=== PATIENT | female | born 1975 | race African-American/Black ===

== ENCOUNTER 2017-10-06 12:43 | Day surgery (SDC) | payer OTHER ==
[2017-10-06] MEDS ORDERED: LIDOCAINE 1% (MPF) 30 ML INJ (15:22)
[2017-10-06] MEDS ORDERED: BUPIVACAINE 0.5% (SDV) 30 ML INJ (15:22)
[2017-10-06] MEDS ORDERED: MIDAZOLAM 1 MG/ML 2 ML INJ ×2 (15:36)
[2017-10-06] MEDS ORDERED: ROPIVACAINE 0.5 % 30 ML VIAL (15:47)
[2017-10-06] MEDS ORDERED: METHYLPREDNISOLONE ACET 80 MG/ML 1 ML (15:47)
[2017-10-06] MEDS ORDERED: FENTAnyl 50 MCG/ML VIAL (15:47)
[2017-10-06] MEDS: ROPIVACAINE 0.5 % 30 ML VIAL INJ (15:57)
[2017-10-06] MEDS: METHYLPREDNISOLONE ACET 80 MG/ML 1 ML INJ (16:01)
[2017-10-06] MEDS ORDERED: PROPOFOL 20 ML (16:09)
== END 2017-10-06 17:33 | disposition home or self-care (01) ==
LOC: SDS 12:43
DX: M46.1 Sacroiliitis, not elsewhere classified (principal)
CPT/HCPCS: 20552; 72170

== ENCOUNTER 2018-11-30 09:43 | Inpatient (IN) | payer OTHER ==
[~2018-11-30 09:43] MED LIST: BUPIVACAINE 0.5% (SDV) 30 ML, morphine SULFATE (PF) 8 MG, EPINEPHrine 0.3 MG, KETOROLAC... IRR; CEFAZOLIN 2 GM/50 ML (PMX) 50 ML IVPB; CEFAZOLIN 3 GM in DEXTROSE 5% 100 ML IVPB; VANCOMYCIN 1 GM (PMX) 250 ML IVPB
[2018-11-30] MEDS: ACETAMINOPHEN 1000MG/100ML IV 100 ML IVPB (12:49)
[2018-11-30] MEDS: oxyCODONE (CR) 10 MG TAB [oxyCONTIN] PO (12:58)
[2018-11-30] MEDS: GABAPENTIN 300 MG CAP PO ×2 (12:58→20:52)
[2018-11-30] MEDS ORDERED: CEFAZOLIN 1 GM INJ ×2 (13:03→15:16)
[2018-11-30] MEDS ORDERED: LIDOCAINE 2% (SDV) 5 ML INJ (13:03)
[2018-11-30] MEDS ORDERED: PROPOFOL 20 ML (13:03)
[2018-11-30] MEDS ORDERED: ONDANSETRON 4 MG INJ (13:04)
[2018-11-30] MEDS ORDERED: METOCLOPRAMIDE 10 MG INJ (13:04)
[2018-11-30] MEDS: TRANEXAMIC ACID 1GM/100ML(PMX) 100 ML IVPB ×5 (13:05→16:39)
[2018-11-30] MEDS: ROPIVACAINE 0.5 % 30 ML VIAL (13:58)
[2018-11-30] MEDS: POLYMYXIN/BACITRACIN 1L IRRIG (14:00)
[2018-11-30] MEDS: [UNRECOGNIZED DRUG - OTHER] IRR (14:02)
[2018-11-30] MEDS: BUPIVACAINE 0.5% IRR (14:02)
[2018-11-30] MEDS: MORPHINE SULFATE IRR (14:02)
[2018-11-30] MEDS: EPINEPHRINE IRR (14:02)
[2018-11-30] MEDS: BACITRACIN 50000 UNITS INJ ×2 (14:53→14:55)
[2018-11-30] MEDS: POLYMYXIN B 500000 UNIT INJ ×2 (14:59)
[2018-11-30] MEDS ORDERED: LABETALOL HCL 20MG INJ IV (15:30)
[2018-11-30] MEDS ORDERED: EPHEDrine SULFATE 50 MG/5 ML SYG IV (15:30)
[2018-11-30] MEDS ORDERED: DIPHENHYDRAMINE 50 MG INJ IV (15:30)
[2018-11-30] MEDS ORDERED: MIDAZOLAM 1 MG/ML 2 ML INJ IV (15:30)
[2018-11-30] MEDS ORDERED: HYDROmorphONE 1 MG/5 ML IV SYRINGE IV ×3 (15:30)
[2018-11-30] MEDS ORDERED: MEPERIDINE 25 MG INJ IV (15:30)
[2018-11-30] MEDS ORDERED: hydrALAzine 20 MG INJ IV (15:30)
[2018-11-30] MEDS ORDERED: METOCLOPRAMIDE 10 MG INJ IV (15:30)
[2018-11-30] MEDS ORDERED: OXYCODONE/ACETAMINOPHEN (5/325) TAB PO ×2 (15:30)
[2018-11-30] MEDS ORDERED: FENTAnyl 50 MCG/ML VIAL IV ×3 (15:30)
[2018-11-30 15:55] LABS: ADD MAN DIFF? NO
[2018-11-30] MEDS ORDERED: CEFAZOLIN 1 GM INJ IV (16:00)
[2018-11-30] MEDS ORDERED: ACETAMINOPHEN 325 MG TAB PO (16:00)
[2018-11-30] MEDS ORDERED: DIPHENHYDRAMINE 25 MG CAP PO (16:00)
[2018-11-30 16:03] LABS: WHITE BLOOD COUNT 4.3 10^3/ul (4.8-10.8)
[2018-11-30 16:03] LABS: BASOPHILS % 0.7 % (0.0-2.0); EOSINOPHILS % 0.7 % (0.0-7.0); HEMATOCRIT 35.8 % (37.0-47.0); HEMOGLOBIN 12.2 g/dl (12.0-16.0); LYMPHOCYTES # 1.6 10^3/ul (0.8-2.9); MEAN CORPUSCULAR HEMOGLOBIN 28.6 pg (29.0-33.0); MEAN CORPUSCULAR HGB CONC 34.1 g/dl (32.0-37.0); MEAN PLATELET VOLUME 10.9 fl (7.4-10.4); MONOCYTE # 0.4 10^3/ul (0.3-0.9); MONOCYTES % 9.7 % (0.0-11.0); NEUTROPHIL # 2.2 10^3/ul (1.6-7.5); NEUTROPHILS % 50.4 % (39.0-77.0); PLATELET COUNT 198 10^3/UL (140-415); RED BLOOD COUNT 4.26 10^6/ul (4.20-5.40); RED CELL DISTRIBUTION WIDTH 12.2 % (11.5-14.5)
[2018-11-30 16:15] LABS: ANION GAP 12 (5-13); BLOOD UREA NITROGEN 12 mg/dl (7-20); CALCIUM 8.7 mg/dl (8.4-10.2); CARBON DIOXIDE 20 mmol/L (21-31); CHLORIDE 108 mmol/L (97-110); CREATININE 0.68 mg/dl (0.44-1.00); Estimated GFR > 60 mL/min (>60); GLUCOSE 103 mg/dl (70-220); POTASSIUM 3.6 mmol/L (3.5-5.1); SODIUM 140 mmol/L (135-144)
[2018-11-30 16:36] LABS: HOLD TRANSMISSIONS 1
[2018-11-30] MEDS: CEFAZOLIN 1 GM/50 ML (PMX) 50 ML IVPB (16:59)
[2018-11-30] MEDS: ONDANSETRON 4 MG INJ IV ×2 (17:05→18:51)
[2018-11-30] MEDS ORDERED: ALPRAZOLAM 0.5 MG TAB PO (19:00)
[2018-11-30] MEDS ORDERED: ZOLPIDEM 5 MG TAB PO (19:00)
[2018-12-01] MEDS: CEFAZOLIN 1 GM/50 ML (PMX) 50 ML IVPB ×3 (00:53→17:21)
[2018-12-01] MEDS: HYDROmorphONE 1 MG/ML SYG IV ×4 (06:07→23:15)
[2018-12-01] MEDS: oxyCODONE 5 MG TAB PO ×3 (07:47→20:29)
[2018-12-01] MEDS: GABAPENTIN 300 MG CAP PO ×3 (09:15→20:29)
[2018-12-01] MEDS: ASPIRIN (EC) 325 MG TAB PO ×2 (09:15→20:29)
[2018-12-01] MEDS: CELECOXIB 200 MG CAP PO (09:15)
[2018-12-01] MEDS: INFLUENZA VIRUS VACCINE 0.5 ML (DISPENSING) IM* (09:16)
[2018-12-01] MEDS: KETOROLAC 30 MG INJ IV (13:32)
[2018-12-01] MEDS: ONDANSETRON 4 MG INJ IV (13:33)
[2018-12-02] MEDS: CEFAZOLIN 1 GM/50 ML (PMX) 50 ML IVPB ×2 (00:35→08:55)
[2018-12-02] MEDS: HYDROmorphONE 1 MG/ML SYG IV ×3 (07:14→23:14)
[2018-12-02] MEDS: KETOROLAC 30 MG INJ IV (07:28)
[2018-12-02] MEDS ORDERED: ACETAMINOPHEN 325 MG TAB PO (07:30)
[2018-12-02] MEDS ORDERED: oxyCODONE 5 MG TAB PO (08:00)
[2018-12-02] MEDS: GABAPENTIN 300 MG CAP PO ×3 (08:55→22:01)
[2018-12-02] MEDS: ASPIRIN (EC) 325 MG TAB PO ×2 (08:55→22:01)
[2018-12-02] MEDS: CELECOXIB 200 MG CAP PO (08:55)
[2018-12-02] MEDS: traMADol 50 MG TAB PO ×3 (08:56→22:01)
[2018-12-02] MEDS: KETOROLAC 15 MG INJ IV ×2 (10:07→18:00)
[2018-12-03] MEDS: HYDROmorphONE 1 MG/ML SYG IV ×2 (04:28→12:09)
[2018-12-03] MEDS: traMADol 50 MG TAB PO (06:38)
[2018-12-03] MEDS: CELECOXIB 200 MG CAP PO (09:07)
[2018-12-03] MEDS: GABAPENTIN 300 MG CAP PO ×2 (09:07→13:04)
[2018-12-03] MEDS: ASPIRIN (EC) 325 MG TAB PO (09:07)
[2018-12-03] MEDS: KETOROLAC 15 MG INJ IV (09:11)
== END 2018-12-03 14:35 | disposition home health service (06) | DRG 470 ==
LOC: SDS 09:43 → REC 15:38 → MS1 17:31
PROC: 0SRD0N9 Replacement of Left Knee Joint with Patellofemoral Synthetic Substitute, Cemented, Open Approach (ICD-10-PCS; principal; 2018-11-30 13:10)
DX: M17.12 Unilateral primary osteoarthritis, left knee (principal); F41.9 Anxiety disorder, unspecified
CPT/HCPCS: 80048; 82306; 85025; 88304; 88311; 90686; 97110; 97116; 97161; 97530; 99217